=== PATIENT | female | born 1950 | race Caucasian/White ===

== ENCOUNTER 2018-04-24 09:46 | Day surgery (SDC) | payer MEDICARE, BC ==
[~2018-04-24 09:46] MED LIST: PROPOFOL 500 MG/50 ML EMU IV ONE
[2018-04-24 11:16] VITALS: BP 136/77; PULSE 72; RESP 20; TEMP 97.8; O2SAT 99
== END 2018-04-24 11:25 | disposition home or self-care (01) | DRG 392 ==
LOC: SURG 09:46
PROVIDERS: ATTEND Surgery
DX: R10.13 Epigastric pain (principal); Q39.9 Congenital malformation of esophagus, unspecified
CPT/HCPCS: J2704